=== PATIENT | male | born 1945 | race Caucasian/White ===

== ENCOUNTER 2018-09-11 12:32 | Emergency (ER) | payer MEDICARE, SELFPAY ==
[2018-09-11 12:33] VITALS: BP 94/39; PULSE 52; RESP 18; TEMP 36.4; O2SAT 98; BMI 32.3
--- NOTE | 2018-09-11 13:26 | EKG12_ITS ---
Test Reason : SYNCOPE Blood Pressure : / mmHG Vent. Rate : 049 BPM Atrial Rate : 049 BPM P-R Int : 178 ms QRS Dur : 154 ms QT Int : 500 ms P-R-T Axes : 046 037 266 degrees QTc Int : 451 ms Sinus bradycardia with sinus arrhythmia Left bundle branch block Abnormal ECG Confirmed by LOIS PARK ([id number]), medical transcription editor WADNA RUVALCABA ([id number] on 09/13/2018 3:22:17 PM Referred By: Confirmed By:LOIS PARK
--- NOTE | 2018-09-11 13:26 | RAD_ITS ---
STUDY: X-RAY CHEST REASON FOR EXAM: Male, 73 years old. Syncope TECHNIQUE: Single AP portable view of the chest. COMPARISON: None. FINDINGS: The lungs are clear and expanded. There is no demonstrated pleural abnormality. Normal size heart. Normal mediastinum and mony. Normal visualized pulmonary arteries. Normal visualized aortic arch and descending thoracic aorta. Normal visualized thoracic spine. Normal visualized ribs, clavicles, and shoulders. There is no demonstrated abnormality of the visualized soft tissue structures of the upper abdomen. RAD/Chest 1 View (Portable) IMPRESSION: Normal x-ray examination of the chest. Electronically Signed: Jorge Enamorado MD at 14:01 EDT Tel , Service support ,
[2018-09-11 13:38] LABS: Absolute Lymphocyte Count 0.97 X10^3/uL (0.83-4.51); Absolute Neutrophil Count 1.1 X10^3/uL (2.0-7.7); Basophil# 0.01 X10^3/uL; Basophil% 0.4 % (0-1); Eosinophil# 0.28 X10^3/uL; Eosinophils% 10.2 % (0-5); Hematocrit 41.5 % (40-54); Hemoglobin 13.4 g/dL (13.0-16.5); Lymphocyte # 0.97 X10^3/ul (4.0); Lymphocyte % 35.4 % (19-41); Mean Corp Hgb Conc 32.3 g/dL (32-36); Mean Corpuscular Hgb 28.7 pg (27.0-32.0); Mean Corpuscular Volume 88.9 fL (80-94); Mean Platelet Vol. 10.4 fl (6.2-12.0); Monocyte# 0.32 X10^3/uL; Monocyte% 11.7 % (0-10); NRBC Flagged by Analyzer 0 % (0-5); Neutrophil # 1.14 X10^3/uL (2.7-7.7); Neutrophil % 41.6 % (47-70); Platelet Count 190 K/mm3 (150-450); RBC Distribution Width CV 14.8 % (11.6-14.6); RBC Distribution Width SD 48.2 fl (35.1-43.9); Red Blood Count 4.67 M/mm3 (4.6-6.2); White Blood Count 2.7 K/mm3 (4.4-11.0)
[2018-09-11 14:01] LABS: Anion Gap 7 (5-15); BUN 22 mg/dL (7-18); BUN/Creat Ratio 12.4 RATIO (10-20); Calcium,Total 8.2 mg/dL (8.5-10.1); Chloride 107 mmol/L (98-107); Creatinine, Serum 1.78 mg/dL (0.70-1.30); EST Glomerular Filtration Rate 40 mL/min (>60); Est Glom Filt Rate - Afr Amer 49 mL/min (>60); Estimated Creatinine Clearance 41.17 ml/min; Glucose 109 mg/dL (74-106); Potassium 3.7 mmol/L (3.5-5.1); Sodium Level 140 mmol/L (136-145)
[2018-09-11] MEDS: 0.9% Normal Saline 1,000 ML 150 ML IV (14:06)
--- NOTE | 2018-09-11 14:13 | ED.DCSUM_ITS ---
- ER Visit Summary Date of Service: 09/11/18 Chief Complaint: [Syncope] History of Present Illness: The patient is a 73 M [presents to the emergency department with a syncopal episode that occurred prior to arrival in the emergency department. Patient presents via EMS. Patient is here with family visiting from [place]. Patient states that he had worked out yesterday pretty hard and then they traveled 6 hours from [place] to [place]. This morning patient walked his dogs and while resting sitting on a bench became very posada and diaphoretic and passed out. Patient became tense but there was no seizure-like activity. Family that was with him states that they thought his blood pressure was low as 1 of the family members as an ER nurse. Was also noted that his heart rate was in the 40s. They called EMS for him and on arrival his systolic blood pressure was in the 80s. Patient has had recent hospitalization in [place] for similar type of episode related to dehydration and acute kidney injury where his creatinine had gone up over 3 and with hydration came back down to around 1.2. Patient does have history of hypertension as well as CHF as well as gout, chronic kidney disease, and pseudogout. Patient has a Holter monitor that he is currently wearing. Patient has been told that he at some point may require a pacemaker. Patient denies any chest pain or shortness of breath. He denies recent illness.] Physical Examination: [HEENT-PERRLA, EOMI. Cranial nerves II through XII grossly intact. TMs clear. Mucous membranes moist. No adenopathy. Cardiovascular-regular rate and rhythm without murmur or ectopy Lungs-clear to auscultation, chest wall stable without crepitus or subcu emphysema Abdomen-normoactive bowel sounds, soft, nontender, no rebound or rigidity, no peritoneal signs. Extremities-intact ?4, normal range of motion, normal pulses, atraumatic] Test Results: [EKG obtained on arrival showed sinus bradycardia with occasional PACs. Patient had a left bundle branch block. CBC with differential obtained showed a white blood cell count of 2.7, hemoglobin 13, hematocrit 41.5, plates 190. Chemistries were unremarkable. BUN was 22 and creatinine 1.78. Troponin is less than 0.015. Chest x-ray was unremarkable.] Emergency Department Course and Treatment: [Patient received normal saline fluid bolus. Heart rate continues to be in the 50s at this point. I had a discussion with the patient discussed his results. I recommended admission for observation and IV fluid hydration. At this time patient is refusing admission and wants to sign out AGAINST MEDICAL ADVICE. Patient's family members are also in the room and aware that he will not agree to admission. They understand my concerns of abnormal heart rhythm issue potentially fatal arrhythmia. Patient understands and will sign out AGAINST MEDICAL ADVICE. Patient also understands that he may return to the emergency department at any time. Treatment Plan: [Follow-up with primary care physician within next 1 to 2 days] Disposition: [Discharged AGAINST MEDICAL ADVICE] Impression: [Syncope Hypotension Bradycardia] This note was generated with [employer] dictation software. It may contain incorrect words, spelling, and punctuation that were not noted in review of the chart prior to signing ED Disposition - Plan for ED Patient: Referrals: Care Physician,No Primary [Primary Care Provider] -
[2018-09-11 15:10] VITALS: BP 125/74; PULSE 53; RESP 18; O2SAT 100
--- NOTE | 2018-09-11 15:43 | ED.DEP ---
ED Disposition - Plan for ED Patient: Instructions: SYNCOPE, Unk Cause, Bradycardia, Low Blood Pressure (Hypotension) Referrals: Care Physician,No Primary [Primary Care Provider] - As soon as possible
[2018-09-11 15:57] VITALS: BP 120/78; PULSE 55; RESP 18
== END 2018-09-11 15:59 | disposition home or self-care (01) ==
PROVIDERS: Emergency Provider Emergency Medicine
DX: R55 Syncope and collapse (principal); I95.9 Hypotension, unspecified; R00.1 Bradycardia, unspecified; I44.7 Left bundle-branch block, unspecified; I13.0 Hypertensive heart and chronic kidney disease with heart failure and stage 1 through stage 4 chronic kidney disease, or unspecified chronic kidney disease; N18.9 Chronic kidney disease, unspecified; I50.9 Heart failure, unspecified; M10.9 Gout, unspecified; Z79.82 Long term (current) use of aspirin; Z79.52 Long term (current) use of systemic steroids; Z79.899 Other long term (current) drug therapy
CPT/HCPCS: 71045; 80048; 84484; 85025; 93005; 96360; 96361; 99285; J7030; A4216